=== PATIENT | male | born 1960 | race Caucasian/White ===

== ENCOUNTER 2020-05-29 13:42 | Emergency (ER) | payer OTHER, SELFPAY ==
--- NOTE | 2020-05-29 13:52 | XR_ITS ---
EXAMINATION: XR SHOULDER, LEFT CLINICAL INFORMATION: Left shoulder pain status post fall. COMPARISON: Left humerus radiographs dated 02/17/2019. TECHNIQUE: AP external rotation, Grashey, scapular Y, and axillary views of the left shoulder. FINDINGS: Deformity seen in the left humeral surgical neck. The left glenohumeral joint is intact. Minimal left acromioclavicular degenerative joint changes are seen. The soft tissues are unremarkable. XR/XR shoulder LT min 2V IMPRESSION: Old healed left humeral surgical neck fracture without definitive acute fracture. Minimal left acromioclavicular degenerative joint changes without significant change.
--- NOTE | 2020-05-29 13:52 | CT_ITS ---
EXAMINATION: HEAD CT WITHOUT CONTRAST CLINICAL INFORMATION: Fall COMPARISON: Previous exams most recent December 2019 TECHNIQUE: Axial images through the brain without contrast. Sagittal and coronal reconstructions on the technologist workstation were performed. Patient dose 7 9 0 mg/cm. FINDINGS: There is no evidence of an extra-axial collection. There is no evidence of intra-axial or extra-axial hemorrhage ventricles and extra-axial CSF spaces are slightly prominent suggestive of mild generalized atrophy. There is an old right frontal infarct that appears unchanged. No mass, mass effect or acute infarct is seen. No skull fracture is seen. There is evidence of pansinusitis. There is soft tissue opacification of the bilateral mastoid air cells and middle ears suggestive of bilateral mastoiditis as well CT/CT cervical spine wo con IMPRESSION: No acute findings. Old right frontal infarct. Pansinusitis and bilateral otomastoiditis. EXAMINATION: Cervical spine CT without contrast CLINICAL INFORMATION: Fall COMPARISON: Previous exams most recent December 2019 TECHNIQUE: Axial images through the cervical spine without contrast. Sagittal and coronal reconstructions were obtained on the technologist workstation. Patient dose 2 9 0 mg/cm. FINDINGS: There is mild 3 mm anterior subluxation of C3 with respect to C4. This is stable from most recent exam December 2019 but new from older exam November 2015. There is severe facet arthritis at C3-C3-C4 on the right. There is mild 3 mm anterior subluxation at C3 with respect to C4 at the right C3-C4 facet joint. There is some bone fragmentation. These findings are non-appreciably changed. There is increasing bone loss compared to December 2019 exam. Post traumatic unilateral partially subluxed right C3-C4 facet joint, and progression of infectious or inflammatory arthritis should be considered. Bone alignment is otherwise normal. No acute fracture or dislocation is seen. There is evidence of degenerative spondylosis from C4-C5 to C7-T1. There is a disc space narrowing at C6-C7 and C7-T1. Prevertebral soft tissues are normal. There is bilateral carotid calcification. There is a right sided line that appears looped in the right distal internal jugular vein. This is similar to December 2019 exam. There is soft tissue calcification left lateral neck. There is biapical pleural and parenchymal scarring. IMPRESSION: No acute fracture or dislocation seen. Mild 3 mm anterior subluxation of C3 with respect to C4. Unilateral right C3-C4 facet arthritis and 3 mm anterior subluxation of C3 with respect to C4 facet joint. There is osteophyte formation and bone fragmentation in this region as well. These findings are unchanged from previous exam December 2019. There is increasing bone loss at the right C3-C4 facet joint. Possible chronic posttraumatic facet joint subluxation or inflammatory or infectious arthritis should be considered. Multilevel degenerative spondylosis and degenerative disc disease. Bilateral carotid calcification. Looped right neck central line.
--- NOTE | 2020-05-29 13:52 | XR_ITS ---
EXAMINATION: XR HIP, LEFT CLINICAL INFORMATION: Left hip pain status post fall. COMPARISON: None TECHNIQUE: Two views of the left hip. FINDINGS: Mild left hip degenerative joint changes are seen. There is no acute fracture or dislocation. The left hemipelvis is intact. There is generalized osteopenia. XR/XR hip LT w PEL1V IMPRESSION: Osteopenia and mild left hip osteoarthritis. No acute fracture.
[2020-05-29 14:13] VITALS: BP 107/68; PULSE 84; RESP 16; TEMP 36.1; O2SAT 95; BMI 22.3
[2020-05-29 15:28] VITALS: BP 103/69; PULSE 65; RESP 14; O2SAT 97
[2020-05-29 17:25] VITALS: BP 102/67; PULSE 65; RESP 14; O2SAT 98
--- NOTE | 2020-05-29 18:36 | ED_ITS ---
HPI - Alcohol General Chief Complaint: Fall Stated Complaint: shoulder/back pain post fall Time Seen by Provider: 05/29/20 13:52 Source: EMS Mode of arrival: EMS Limitations: no limitations History of Present Illness HPI narrative: E[place] states left shoulder pain otherwise no complaints. + odor of EOT MD complaint: alcohol intoxication Chronic alcohol use: Yes Previous visits for alcohol intoxication: Yes Recent trauma: Yes Treatments prior to arrival: none Related Data Allergies Allergy/AdvReac Type Severity Reaction Status Date / Time bee pollen [BEE STINGS] Allergy Unknown SWELLING Unverified 03/15/20 14:56 Review of Systems Review of Systems: Constitutional: No Weight loss, No Fever, No Chills, No Night Sweats, No Fatigue, No Malaise ENT/Mouth: No Hearing loss, No Ear Pain, No Nasal Congestion, No Sinus Pain, No Hoarseness, No sore throat Eyes: No Eye Pain, No Swelling, No Redness, No Foreign Body, No Discharge, No Vision Changes Cardiovascular: No Chest Pain, No SOB, No Dyspnea on Exertion, No Orthopnea, No Edema, No Palpitations Respiratory: No Cough, No Sputum, No Wheezing, No Smoke Exposure, No Dyspnea Gastrointestinal: No Nausea, No Vomiting, No Diarrhea, No Constipation, No abdominal Pain Genitourinary: No Dysuria, No Urinary Frequency, No Hematuria, No Urinary Incontinence, No Urgency, No Flank Pain, No Urinary Flow Changes, No Hesitancy Musculoskeletal: No joint pain, No Myalgias, No Joint Swelling Skin: No Skin Lesions, No rash Neuro: No Weakness, No Numbness, No Paresthesias, No Loss of Consciousness, No Dizziness, No Headache Psych: No Anxiety/Panic, No Depression, No SI/HI/AH/VH s Heme/Lymph: No Bruising, No Bleeding,No Lymphadenopathy Endocrine: No Polyuria, No Polydipsia, No Temperature Intolerance Yes all other systems are reviewed and are negative [facility] Past Medical History Medical History HTN (hypertension) Myocardial infarction Social History Social History Advance Directives: No Advance Directives Information Provided: Yes Physical Exam Vital Signs: Vital Signs: Last Vital Signs Temp 97 F 05/29/20 14:13 Pulse 65 05/29/20 17:25 Resp 14 05/29/20 17:25 BP 102/67 05/29/20 17:25 Pulse Ox 98 05/29/20 17:25 Body Mass Index 22.3 Reviewed Const: General: cooperative and intoxicated appearing Nutritional Appe arance: average body habitus Orientation/consciousness: patient oriented x3 HENMT: Head: Yes normal to inspection Ears: hearing grossly normal bilaterally Eyes: General: appearance normal, both eyes and all related structures Visual Castano: normal visual castano by confrontation Neck: Neck: Yes normal visual inspection, No positive Brudzinski's sign, No positive Kernig's sign and No tender Thyroid: Thyroid normal Chest: Chest palpation & inspection: normal inspection of the chest Resp: Effort & Inspection: normal respiratory effort Cardio: Jugular venous distension: no JVD GI: Inspection: Yes normal to inspection Percussion: Yes normal to percussion Auscultation: normal bowel sounds : General: Yes no CVA tenderness Back/Spine/Pelvis: Back: no CVA tenderness Skin: General skin exam: no rashes or lesions noted Neuro: General: patient oriented x3 Extrem: General: Yes normal to inspection Course Course Course Narrative: Vaguely complaints of left shoulder/left hip pain. Has full range of motion/able to flex and extend fully both upper lower extremities. Smyth s have odor of EtOH. Will go ahead and get imaging of his head/cervical spine as well as left shoulder and left hip. MDM - Alcohol MDM Narrative Medical decision making narrative: CT findings reviewed with patient's daughter does not appear to be any acute findings though the cervical spine CT needs follow-up she will arrange follow-up through her primary care doctor. Patient observed in the ED for over 6 hours clinically sober at this time ambulated to bathroom studies with gait. No complaint of pain or discomfort. Will discharge with clear precaution return follow-up instructions. Imaging copy provided to him. Medical Records Attestation: I reviewed the patient's medical records. Lab Data Attestation: I reviewed the patient's lab results. Discharge Plan Discharge Clinical Impression: ETOH abuse, Fall Patient Disposition: Home, Self-Care Instructions: Abuse of Alcohol (ED) Additional Instructions: Please stop drinking alcohol as this can cause serious harm to health This can cause serious harm to health including but not limited to Please go directly to detox Return if any concerns or symptoms Thank you Referrals: Physician,ED [Emergency Provider] - 1 day (Primary care doctor Detox center)
--- NOTE | 2020-05-29 19:55 | PC.NURSE ---
PT IN HALLWAY AWAITING FURTHER ORDERS. PT WAKES TO VOICE AND DENIES ANY COMPLAINTS AT THIS TIME. WILL CONTINUE TO MONITOR PT.
--- NOTE | 2020-05-29 20:32 | PC.NURSE ---
PT IS WAITING FOR D/C. NURSE ON PHONE TRYING TO GET TAXI RIDE FOR PT TO GET HOME. WILL CONTINUE TO MONITOR PT.
== END 2020-05-29 21:28 | disposition home or self-care (01) ==
PROVIDERS: Emergency Provider Emergency Medicine Emergency Medical Services
DX: F10.10 Alcohol abuse, uncomplicated (principal); Y90.9 Presence of alcohol in blood, level not specified; M25.512 Pain in left shoulder; M25.552 Pain in left hip; Z91.81 History of falling; I10 Essential (primary) hypertension; I25.2 Old myocardial infarction
CPT/HCPCS: 70450; 72125; 73030; 73502; 99283; 99284